=== PATIENT | female | born 1995 | race Caucasian/White ===

== ENCOUNTER 2016-10-24 10:31 | Emergency (ER) | payer MEDICAID ==
[~2016-10-24] VITALS: Ht 160 cm; Wt 86.0 kg
[2016-10-24 10:32] VITALS: BP 120/78; PULSE 91; RESP 16; TEMP 97.6; O2SAT 99
[2016-10-24] MEDS ORDERED: SODIUM CHLOR 0.9% 1000 ML INJ 1,000 ML IV SCH (11:25)
[2016-10-24] MEDS ORDERED: ONDANSETRON HCL 4 MG/2 ML VIAL IVP ONE (11:30)
[2016-10-24] MEDS ORDERED: KETOROLAC TROMETHAMINE 30 MG/ML (IVP) VIAL IVP ONE (11:30)
--- NOTE | 2016-10-24 11:31 | PD ---
HPI Chief Complaint: GI Complaint Time Seen by Provider: 11:17 Travel History International Travel<30 days: No Contact w/Intl Traveler<30days: No Traveled to known affect area: No History of Present Illness HPI 21-year-old female complains of headache, nausea vomiting diarrhea. Patient states that the symptoms started this morning. Patient states that headache is aching headache diffuse over the head. Patient denies any visual change. Patient denies any neck pain. Patient denies any chest pain or shortness of breath. Patient denies abdominal pain. Patient denies any dysuria or frequency. Patient denies any vaginal discharge or bleeding. Patient denies any back pain. Patient denies any fever chills. PFSH Past Medical History Asthma: Yes (SPORTS INDUCED ASTHMA WHEN YOUNGER) Depression: Yes Chest Pain: Yes Diminished Hearing: No Headaches: Yes Immunizations Current: Yes Migraines: Yes Seizures: Yes (head injury) Tetanus Vaccination: < 5 Years Influenza Vaccination: No ?: Not LMP: 1 WEEK AGO Past Surgical History Tonsillectomy: Yes (adnoids) Social History Alcohol Use: Yes (ONCE PER WEEK) Tobacco Use: Yes (occ) Substance Use: No Allergies-Medications (Allergen,Severity, Reaction): Coded Allergies: No Known Allergies (Unverified , 10/24/16) Reported Meds & Prescriptions Reported Meds & Active Scripts Active No Active Prescriptions or Reported Medications Review of Systems General / Constitutional: No: Fever Eyes: No: Visual changes HENT: Positive: Headaches Cardiovascular: No: Chest Pain or Discomfort Respiratory: No: Shortness of Breath Gastrointestinal: Positive: Nausea, Vomiting, Diarrhea, No: Abdominal Pain Genitourinary: No: Dysuria Musculoskeletal: No: Pain Skin: No Rash Neurologic: No: Weakness Psychiatric: No: Depression Endocrine: No: Polydipsia Hematologic/Lymphatic: No: Easy Bruising Physical Exam Narrative GENERAL: Well-nourished, well-developed patient. SKIN: Focused skin assessment warm/dry. HEAD: Normocephalic. EYES: No scleral icterus. No injection or drainage. NECK: Supple, trachea midline. No JVD or lymphadenopathy. CARDIOVASCULAR: Regular rate and rhythm without murmurs, gallops, or rubs. RESPIRATORY: Breath sounds equal bilaterally. No accessory muscle use. GASTROINTESTINAL: Abdomen soft, nondistended. Patient has mild diffuse tenderness over the abdomen. No rebound tenderness. No mass. MUSCULOSKELETAL: No cyanosis, or edema. BACK: Nontender without obvious deformity. No CVA tenderness. Data Data Last Documented VS Vital Signs Date Time Temp Pulse Resp B/P Pulse Ox O2 Delivery O2 Flow Rate FiO2 10/24/16 11:54 90 18 138/75 98 Room Air 10/24/16 10:32 97.6 Orders Complete Blood Count With Diff (10/24/16 11:25) Comprehensive Metabolic Panel (10/24/16 11:25) Lipase (10/24/16 11:25) Urinalysis - C+S If Indicated (10/24/16 11:25) Iv Access Insert/Monitor (10/24/16 11:25) Ecg Monitoring (10/24/16 11:25) Oximetry (10/24/16 11:25) Ondansetron Inj (Zofran Inj) (10/24/16 11:30) Sodium Chlor 0.9% 1000 Ml Inj (Ns 1000 M (10/24/16 11:25) Ketorolac Inj (Toradol Inj) (10/24/16 11:30) Ed Urine Pregnancytest Poc (10/24/16 11:25) Labs Laboratory Tests Test 10/24/16 10/24/16 11:20 11:40 Urine Collection Type CLEAN CATCH Urine Color YELLOW Urine Turbidity CLEAR Urine pH 6.0 Urine Specific [place] 1.026 Urine Protein TRACE mg/dL Urine Glucose (UA) NEG mg/dL Urine Ketones NEG mg/dL Urine Occult Blood LARGE Urine Nitrite NEG Urine Bilirubin NEG Urine Leukocyte Esterase NEG Urine RBC 0-3 /hpf Urine WBC 3-5 /hpf Urine Squamous Epithelial 0-5 /hpf Cells Urine Amorphous Sediment MOD Microscopic Urinalysis Comment CULT NOT INDICATED White Blood Count 13.2 TH/MM3 Red Blood Count 5.46 MIL/MM3 Hemoglobin 14.4 GM/DL Hematocrit 44.4 % Mean Corpuscular Volume 81.4 FL Mean Corpuscular Hemoglobin 26.4 PG Mean Corpuscular Hemoglobin 32.5 % Concent Red Cell Distribution Width 13.2 % Platelet Count 309 TH/MM3 Mean Platelet Volume 9.4 FL Neutrophils (%) (Auto) 87.8 % Lymphocytes (%) (Auto) 6.7 % Monocytes (%) (Auto) 4.0 % Eosinophils (%) (Auto) 1.2 % Basophils (%) (Auto) 0.3 % Neutrophils # (Auto) 11.6 TH/MM3 Lymphocytes # (Auto) 0.9 TH/MM3 Monocytes # (Auto) 0.5 TH/MM3 Eosinophils # (Auto) 0.2 TH/MM3 Basophils # (Auto) 0.0 TH/MM3 CBC Comment DIFF FINAL Differential Comment Sodium Level 139 MEQ/L Potassium Level 4.4 MEQ/L Chloride Level 107 MEQ/L Carbon Dioxide Level 25.4 MEQ/L Anion Gap 7 MEQ/L Blood Urea Nitrogen 16 MG/DL Creatinine 0.77 MG/DL Estimat Glomerular Filtration 94 ML/MIN Rate Random Glucose 107 MG/DL Calcium Level 9.5 MG/DL Total Bilirubin 0.5 MG/DL Aspartate Amino Transf 14 U/L (AST/SGOT) Alanine Aminotransferase 22 U/L (ALT/SGPT) Alkaline Phosphatase 80 U/L Total Protein 7.9 GM/DL Albumin 3.9 GM/DL Lipase 149 U/L [facility] Medical Decision Making Medical Screen Exam Complete: Yes Emergency Medical Condition: Yes Interpretation(s) 11:58 AM. CBC WBC 13.2. 87 neutrophil. UA is negative. Urine test negative. 12:17 PM. CMP within normal limits. Differential Diagnosis Differential diagnoses including gastroenteritis, viral syndrome, migraine headache, tension headache, cluster headache, electrolyte abnormality, dehydration. Narrative Course 21-year-old female complains of headache, nausea vomiting diarrhea. Normal saline solution 1 L IV bolus. Toradol 30 mg IV. Zofran 4 mg IV. Diagnosis Primary Impression: Gastroenteritis Additional Impression: Cephalgia Qualified Code: R51 - Acute nonintractable headache, unspecified headache type Patient Instructions: General Instructions Additional Instructions: Take medication as needed. Follow-up with personal physician. Return if persistent problem or worse. Med/Other Pt SpecificInfo: Prescription(s) given Scripts Diphenoxylate-Atropine (Lomotil)2.5-0.025 Mg Tab1 Tab PO Q6H PRN (DIARRHEA) #10 TAB Ref 0 Prov:Kevin Mireles MD 10/24/16 Ondansetron Odt (Zofran Odt)4 Mg Tab4 Mg SL Q6HR PRN (Nausea/Vomiting) #10 TAB Prov:Kevin Mireles MD 10/24/16 Disposition: 01 DISCHARGE HOME Condition: Stable Kevin Mireles MD Oct 24, 2016 11:31
[2016-10-24 11:48] LABS: AUTOMATED NEUTROPHIL # 11.6 TH/MM3 (1.8-7.7); BASOPHIL % 0.3 % (0.0-2.0); EOSINOPHIL # 0.2 TH/MM3 (0-0.4); EOSINOPHIL % 1.2 % (0.0-4.0); HEMATOCRIT 44.4 % (35.0-46.0); HEMO FLAGS DIFF FINAL; LYMPH % 6.7 % (9.0-44.0); LYMPHOCYTE # 0.9 TH/MM3 (1.0-4.8); MEAN CELL VOLUME 81.4 FL (80.0-100.0); MEAN CORPUSCULAR HEMOGLOBIN 26.4 PG (27.0-34.0); MEAN CORPUSCULAR HGB CONC 32.5 % (32.0-36.0); NEUT % 87.8 % (16.0-70.0); PLATELET COUNT 309 TH/MM3 (150-450); RED BLOOD COUNT 5.46 MIL/MM3 (4.00-5.30); RED CELL DISTRIBUTION WIDTH 13.2 % (11.6-17.2); WHITE BLOOD COUNT 13.2 TH/MM3 (4.0-11.0)
[2016-10-24 11:49] LABS: BLOOD, URINE LARGE (NEG); GLUCOSE,URINE NEG (NEG); KETONE, URINE NEG (NEG); NITRITE,URINE NEG (NEG)
[2016-10-24 11:50] LABS: METHOD OF COLLECTION CLEAN CATCH; URINE COLOR YELLOW (YELLW/STRAW)
[2016-10-24 11:53] LABS: RBC, URINE 0-3 /hpf (0-3); SQUAMOUS EPITHELIAL CELL URINE 0-5 /hpf (0-5)
[2016-10-24 11:54] VITALS: BP 138/75; PULSE 90; RESP 18; O2SAT 98
[2016-10-24 11:54] LABS: COMMENT (UR) CULT NOT INDICATED; CULTURE IF INDICATED CULT NOT INDICATED
[2016-10-24 11:56] LABS: CHLORIDE 107 MEQ/L (98-107); POTASSIUM 4.4 MEQ/L (3.5-5.1); SODIUM (NA) 139 MEQ/L (136-145)
[2016-10-24 12:00] LABS: ANION GAP 7 MEQ/L (5-15); BICARBONATE 25.4 MEQ/L (21.0-32.0); BLOOD UREA NITROGEN 16 MG/DL (7-18)
[2016-10-24 12:03] LABS: ALT (GPT) 22 U/L (10-53); AST (GOT) 14 U/L (15-37); GLOMERULAR FILTRATION RATE 94 ML/MIN (>89)
[2016-10-24 12:04] LABS: TOTAL BILIRUBIN ADULT 0.5 MG/DL (0.2-1.0)
[2016-10-24 12:06] LABS: ALKALINE PHOSPHATASE 80 U/L (45-117)
[2016-10-24] MEDS ORDERED: LOMO2.5T PO (12:22)
[2016-10-24] MEDS ORDERED: ZOFR4TAB3 SL (12:22)
[2016-10-24 13:02] VITALS: BP 117/53
== END 2016-10-24 13:05 | disposition home or self-care (01) ==
LOC: PHED 10:31
DX: K52.9 Noninfective gastroenteritis and colitis, unspecified (principal); R51 Headache; Z72.0 Tobacco use
CPT/HCPCS: 80053; 81001; 83690; 84703; 85025; 96361; 96374; 96375; 99284; J1885; J2405; J7030

== ENCOUNTER 2017-07-19 11:54 | Emergency (ER) | payer MEDICAID ==
[~2017-07-19] VITALS: Ht 160 cm; Wt 83.4 kg
[~2017-07-19 11:54] MED LIST: LOMO2.5T PO; ZOFR4TAB3 SL
[2017-07-19 11:57] VITALS: BP 139/88; PULSE 93; RESP 18; TEMP 98.5; O2SAT 97
[2017-07-19] MEDS ORDERED: SODIUM CHLOR 0.9% 1000 ML INJ 1,000 ML IV SCH (12:50)
--- NOTE | 2017-07-19 12:53 | PD ---
HPI Chief Complaint: Abdominal Pain Time Seen by Provider: 12:44 Travel History International Travel<30 days: No Contact w/Intl Traveler<30days: No Traveled to known affect area: No History of Present Illness HPI This 22-year-old female is complaining of pain in the right flank/right upper quadrant for the last 2 days. Says the pain is been fairly constant. It is associated with nausea. She does not recall having pain like this before. She has not vomited. She is not aware of fever or chills. He has not had any dysuria or frequency of urination. PFSH Past Medical History Asthma: Yes (SPORTS INDUCED ASTHMA WHEN YOUNGER) Depression: Yes Chest Pain: Yes Diminished Hearing: No Headaches: Yes Immunizations Current: Yes Migraines: Yes Seizures: Yes (head injury) ?: Not LMP: ONE WEEK AGO Past Surgical History Tonsillectomy: Yes (adnoids) Social History Alcohol Use: Yes (ONCE PER WEEK) Tobacco Use: Yes (occ) Substance Use: No Allergies-Medications (Allergen,Severity, Reaction): Coded Allergies: No Known Allergies (Unverified Adverse Reaction, Unknown, 07/19/17) Reported Meds & Prescriptions Reported Meds & Active Scripts Active Lomotil (Diphenoxylate-Atropine) 2.5-0.025 Mg Tab 1 Tab PO Q6H PRN Zofran Odt (Ondansetron Odt) 4 Mg Tab 4 Mg SL Q6HR PRN Review of Systems General / Constitutional: No: Fever, Chills Eyes: No: Diploplia, Blurred Vision HENT: No: Headaches, Vertigo Cardiovascular: No: Chest Pain or Discomfort, Palpitations Respiratory: No: Cough, Shortness of Breath Gastrointestinal: Positive: Nausea, Abdominal Pain Genitourinary: Positive: Flank Pain, No: Urgency, Frequency Musculoskeletal: No: Myalgias Skin: No Rash, No Itching Neurologic: No: Weakness, Dizziness Endocrine: No: Heat Intolerance Hematologic/Lymphatic: No: Easy Bruising Physical Exam Narrative GENERAL: Well-developed female SKIN: Focused skin assessment warm/dry. HEAD: Atraumatic. Normocephalic. EYES: Pupils equal and round. No scleral icterus. No injection or drainage. ENT: No nasal bleeding or discharge. Mucous membranes pink and moist. NECK: Trachea midline. No JVD. CARDIOVASCULAR: Regular rate and rhythm. No murmur appreciated. RESPIRATORY: No accessory muscle use. Clear to auscultation. Breath sounds equal bilaterally. GASTROINTESTINAL: Abdomen soft, non-tender, nondistended. Hepatic and splenic margins not palpable. There is some right mid abdominal and right flank tenderness MUSCULOSKELETAL: No obvious deformities. No clubbing. No cyanosis. No edema. NEUROLOGICAL: Awake and alert. No obvious cranial nerve deficits. Motor grossly within normal limits. Normal speech. PSYCHIATRIC: Appropriate mood and affect; insight and judgment normal. Data Data Last Documented VS Vital Signs Date Time Temp Pulse Resp B/P (MAP) Pulse Ox O2 Delivery O2 Flow Rate FiO2 07/19/17 14:44 70 16 127/71 (89) 96 Room Air 07/19/17 11:57 98.5 Orders Orders Complete Blood Count With Diff (07/19/17 12:50) Comprehensive Metabolic Panel (07/19/17 12:50) Urinalysis - C+S If Indicated (07/19/17 12:50) Ct Abd/Pel W Iv Contrast(Rout) (07/19/17 12:50) Iv Access Insert/Monitor (07/19/17 12:50) Ecg Monitoring (07/19/17 12:50) Oximetry (07/19/17 12:50) Ondansetron Inj (Zofran Inj) (07/19/17 13:00) Sodium Chlor 0.9% 1000 Ml Inj (Ns 1000 M (07/19/17 12:50) Sodium Chloride 0.9% Flush (Ns Flush) (07/19/17 13:00) Ed Urine Pregnancytest Poc (07/19/17 12:50) Iohexol 350 Inj (Omnipaque 350 Inj) (07/19/17 14:08) Labs Laboratory Tests Test 07/19/17 13:20 07/19/17 13:25 Urine Collection Type VOIDED Urine Color YELLOW Urine Turbidity CLEAR Urine pH 8.0 Urine Specific [place] 1.015 Urine Protein NEG mg/dL Urine Glucose (UA) NEG mg/dL Urine Ketones NEG mg/dL Urine Occult Blood SMALL Urine Nitrite NEG Urine Bilirubin NEG Urine Urobilinogen 0.2 MG/DL Urine Leukocyte Esterase NEG Urine RBC 0-2 /hpf Urine WBC /hpf Urine Squamous Epithelial Cells 0-2 /hpf Microscopic Urinalysis Comment CULT NOT INDICATED White Blood Count 10.4 TH/MM3 Red Blood Count 4.65 MIL/MM3 Hemoglobin 13.4 GM/DL Hematocrit 39.6 % Mean Corpuscular Volume 85.1 FL Mean Corpuscular Hemoglobin 28.8 PG Mean Corpuscular Hemoglobin Concent 33.8 % Red Cell Distribution Width 12.5 % Platelet Count 252 TH/MM3 Mean Platelet Volume 9.8 FL Neutrophils (%) (Auto) 60.9 % Lymphocytes (%) (Auto) 24.9 % Monocytes (%) (Auto) 7.4 % Eosinophils (%) (Auto) 2.6 % Basophils (%) (Auto) 4.2 % Neutrophils # (Auto) 6.3 TH/MM3 Lymphocytes # (Auto) 2.6 TH/MM3 Monocytes # (Auto) 0.8 TH/MM3 Eosinophils # (Auto) 0.3 TH/MM3 Basophils # (Auto) 0.4 TH/MM3 CBC Comment DIFF FINAL Differential Comment Blood Urea Nitrogen 12 MG/DL Creatinine 0.74 MG/DL Random Glucose 85 MG/DL Total Protein 7.4 GM/DL Albumin 3.7 GM/DL Calcium Level 9.2 MG/DL Alkaline Phosphatase 67 U/L Aspartate Amino Transf (AST/SGOT) 32 U/L Alanine Aminotransferase (ALT/SGPT) 21 U/L Total Bilirubin 0.4 MG/DL Sodium Level 141 MEQ/L Potassium Level 4.8 MEQ/L Chloride Level 110 MEQ/L Carbon Dioxide Level 26.1 MEQ/L Anion Gap 5 MEQ/L Estimat Glomerular Filtration Rate 97 ML/MIN [facility] Medical Decision Making Medical Screen Exam Complete: Yes Emergency Medical Condition: Yes Medical Record Reviewed: Yes Differential Diagnosis Differential includes pyelonephritis, renal colic, appendicitis, ovarian cyst Narrative Course Urinalysis is negative for blood CT of the abdomen and pelvis was obtained and there was a 3 mm stone in the distal right ureter causing right hydronephrosis and hydroureter. Patient is here with her 2-year-old child so I am reluctant to give any narcotics but I will order some Toradol Diagnosis Primary Impression: Right ureteral stone Scripts Ondansetron Odt (Zofran Odt) 4 Mg Tab 4 MG SL Q6HR Y for Nausea/Vomiting, #10 TAB 0 Refills Prov: Denny Clark MD 07/19/17 Hydrocodone-Acetaminophen ([place]) 7.5-325 mg Tab 1 TAB PO Q4H Y for PAIN, #12 TAB 0 Refills Prov: Denny Clark MD 07/19/17 Disposition: 01 DISCHARGE HOME Condition: Stable Denny Clark MD Jul 19, 2017 12:53
[2017-07-19] MEDS ORDERED: SODIUM CHLORIDE 0.9% FLUSH 10 ML FLUSH IV FLUSH PRN (13:00)
[2017-07-19] MEDS ORDERED: ONDANSETRON HCL 4 MG/2 ML VIAL IVP ONE (13:00)
[2017-07-19 13:31] VITALS: RESP 16; O2SAT 99
[2017-07-19 13:31] LABS: AUTOMATED NEUTROPHIL # 6.3 TH/MM3 (1.8-7.7); BASOPHIL # 0.4 TH/MM3 (0-0.2); BASOPHIL % 4.2 % (0.0-2.0); EOSINOPHIL # 0.3 TH/MM3 (0-0.4); EOSINOPHIL % 2.6 % (0.0-4.0); HEMATOCRIT 39.6 % (35.0-46.0); HEMOGLOBIN 13.4 GM/DL (11.6-15.3); LYMPH % 24.9 % (9.0-44.0); LYMPHOCYTE # 2.6 TH/MM3 (1.0-4.8); MEAN CELL VOLUME 85.1 FL (80.0-100.0); MEAN CORPUSCULAR HEMOGLOBIN 28.8 PG (27.0-34.0); MEAN CORPUSCULAR HGB CONC 33.8 % (32.0-36.0); MEAN PLATELET VOLUME 9.8 FL (7.0-11.0); MONO % 7.4 % (0.0-8.0); MONOCYTE # 0.8 TH/MM3 (0-0.9); NEUT % 60.9 % (16.0-70.0); PLATELET COUNT 252 TH/MM3 (150-450); RED BLOOD COUNT 4.65 MIL/MM3 (4.00-5.30); RED CELL DISTRIBUTION WIDTH 12.5 % (11.6-17.2); WHITE BLOOD COUNT 10.4 TH/MM3 (4.0-11.0)
[2017-07-19 13:39] VITALS: BP 118/74; PULSE 72; RESP 16; O2SAT 97
[2017-07-19 13:39] LABS: BILIRUBIN, URINE NEG (NEG); BLOOD, URINE SMALL (NEG); GLUCOSE,URINE NEG (NEG); KETONE, URINE NEG (NEG); NITRITE,URINE NEG (NEG); URINE COLOR YELLOW (YELLW/STRAW); URINE LEUKOCYTE ESTERASE NEG (NEG)
[2017-07-19 13:40] LABS: CHLORIDE 110 MEQ/L (98-107); SODIUM (NA) 141 MEQ/L (136-145)
[2017-07-19 13:43] LABS: ALBUMIN 3.7 GM/DL (3.4-5.0); BICARBONATE 26.1 MEQ/L (21.0-32.0); CALCIUM 9.2 MG/DL (8.5-10.1); GLUCOSE,RANDOM 85 MG/DL (74-106)
[2017-07-19 13:44] LABS: BLOOD UREA NITROGEN 12 MG/DL (7-18)
[2017-07-19 13:46] LABS: ALT (GPT) 21 U/L (10-53); AST (GOT) 32 U/L (15-37)
[2017-07-19 13:47] LABS: CREATININE 0.74 MG/DL (0.50-1.00); GLOMERULAR FILTRATION RATE 97 ML/MIN (>89)
[2017-07-19 13:48] LABS: TOTAL BILIRUBIN ADULT 0.4 MG/DL (0.2-1.0); TOTAL PROTEIN 7.4 GM/DL (6.4-8.2)
[2017-07-19 13:49] LABS: ALKALINE PHOSPHATASE 67 U/L (45-117)
[2017-07-19] MEDS ORDERED: IOHEXOL 350 MG/ML 10 ML VIAL (for RAD DIAG) IVCONTRAST ONE (14:08)
[2017-07-19 14:09] LABS: RBC, URINE 0-2 /hpf (0-3); SQUAMOUS EPITHELIAL CELL URINE 0-2 /hpf (0-5)
[2017-07-19 14:44] VITALS: BP 127/71; PULSE 70; RESP 16; O2SAT 96
--- NOTE | 2017-07-19 14:45 | RADRPT ---
EXAM DATE/TIME: 07/19/2017 13:53 [place] COMPARISON: No previous studies available for comparison. INDICATIONS : Right lower quadrant pain. IV CONTRAST: 95 cc Omnipaque 350 (iohexol) IV ORAL CONTRAST: No oral contrast ingested. RADIATION DOSE: 16.52 CTDIvol (mGy) MEDICAL HISTORY : Seizures. SURGICAL HISTORY : None. ENCOUNTER: Initial ACUITY: 3 days PAIN SCALE: 9/10 LOCATION: Right lower quadrant TECHNIQUE: Volumetric scanning of the abdomen and pelvis was performed. Using automated exposure control and ad justment of the mA and/or kV according to patient size, radiation dose was kept as low as reasonably achievable to obtain optimal diagnostic quality images. DICOM format image data is available electro nically for review and comparison. FINDINGS: LOWER LUNGS: The visualized lower lungs are clear. LIVER: Homogeneous density without lesion. There is no dilation of the biliary tree. No calcified gallston es. SPLEEN: Normal size without lesion. PANCREAS: Within normal limits. KIDNEYS: Normal in size and shape. There is mild right hydronephrosis and hydroureter caused by a 3 mm stone i n the distal right ureter. In the left mid collecting system there is a 2 mm nonobstructing stone and another 4 mm nonobstructing stone in the lower pole ADRENAL GLANDS: Within normal limits. VASCULAR: There is no aortic aneurysm. BOWEL/MESENTERY: The stomach, small bowel, and colon demonstrate no acute abnormality. There is no free intraperitone al air or fluid. Appendix and terminal ileum are normal. ABDOMINAL WALL: Within normal limits. RETROPERITONEUM: There is no lymphadenopathy. BLADDER: No wall thickening or mass. REPRODUCTIVE: Within normal limits. There is a right ovarian corpus luteal cyst. INGUINAL: There is no lymphadenopathy or hernia. MUSCULOSKELETAL: No acute abnormality. CONCLUSION: 1. The patient's right lower quadrant pain is caused by a 3 mm stone in the distal right ureter which is resulting in right hydronephrosis and hydroureter. 2. The appendix and terminal ileum are normal. 3. There are nonobstructing stones in the left kidney measuring 2 mm in the midportion and 4 mm at th e lower pole. Matty Barksdale MD on July 19, 2017 at 14:35 Board Certified Radiologist. This report was verified electronically.
[2017-07-19] MEDS ORDERED: KETOROLAC TROMETHAMINE 30 MG/ML (IVP) VIAL IV PUSH ONE (15:00)
[2017-07-19] MEDS ORDERED: ZOFR4TAB3 SL (15:02)
[2017-07-19] MEDS ORDERED: HYDR-3288 PO (15:02)
== END 2017-07-19 15:20 | disposition home or self-care (01) ==
LOC: PHED 11:54
DX: N13.2 Hydronephrosis with renal and ureteral calculous obstruction (principal); F32.9 Major depressive disorder, single episode, unspecified; Z72.0 Tobacco use
CPT/HCPCS: 74177; 80053; 81001; 84703; 85025; 96361; 96374; 96375; 99285; J1885; J2405; J7030; Q9967

== ENCOUNTER 2017-08-31 20:30 | Emergency (ER) | payer SELFPAY ==
[~2017-08-31] VITALS: Ht 160 cm; Wt 80.1 kg
[~2017-08-31 20:30] MED LIST changes: +HYDR-3288 PO
[2017-08-31 20:34] VITALS: BP 164/89; PULSE 87; RESP 16; TEMP 98.3; O2SAT 100
[2017-08-31] MEDS ORDERED: SODIUM CHLOR 0.9% 1000 ML INJ 1,000 ML IV ONE (20:56)
[2017-08-31] MEDS ORDERED: SODIUM CHLORIDE 0.9% FLUSH 10 ML FLUSH IVF PRN (21:00)
[2017-08-31 21:24] LABS: AUTOMATED NEUTROPHIL # 6.7 TH/MM3 (1.8-7.7); BASOPHIL # 0.2 TH/MM3 (0-0.2); BASOPHIL % 1.5 % (0.0-2.0); EOSINOPHIL # 0.3 TH/MM3 (0-0.4); EOSINOPHIL % 2.7 % (0.0-4.0); HEMOGLOBIN 14.5 GM/DL (11.6-15.3); LYMPH % 25.6 % (9.0-44.0); LYMPHOCYTE # 2.7 TH/MM3 (1.0-4.8); MEAN CELL VOLUME 86.7 FL (80.0-100.0); MEAN CORPUSCULAR HEMOGLOBIN 28.6 PG (27.0-34.0); MEAN PLATELET VOLUME 9.5 FL (7.0-11.0); MONOCYTE # 0.6 TH/MM3 (0-0.9); NEUT % 64.2 % (16.0-70.0); PLATELET COUNT 293 TH/MM3 (150-450); RED BLOOD COUNT 5.08 MIL/MM3 (4.00-5.30); RED CELL DISTRIBUTION WIDTH 12.5 % (11.6-17.2); WHITE BLOOD COUNT 10.5 TH/MM3 (4.0-11.0)
[2017-08-31 21:51] LABS: CHLORIDE 106 MEQ/L (98-107); SODIUM (NA) 139 MEQ/L (136-145)
[2017-08-31 21:54] LABS: ALBUMIN 3.9 GM/DL (3.4-5.0); BICARBONATE 25.7 MEQ/L (21.0-32.0); GLUCOSE,RANDOM 78 MG/DL (74-106)
[2017-08-31 21:55] LABS: BLOOD UREA NITROGEN 13 MG/DL (7-18)
[2017-08-31 21:56] LABS: BILIRUBIN, URINE NEG (NEG); BLOOD, URINE TRACE (NEG); GLUCOSE,URINE NEG (NEG); KETONE, URINE NEG (NEG); NITRITE,URINE NEG (NEG); URINE COLOR YELLOW (YELLW/STRAW); URINE LEUKOCYTE ESTERASE NEG (NEG)
[2017-08-31 21:57] LABS: ALT (GPT) 25 U/L (10-53)
[2017-08-31 21:58] LABS: AST (GOT) 17 U/L (15-37); CREATININE 0.65 MG/DL (0.50-1.00); GLOMERULAR FILTRATION RATE 113 ML/MIN (>89)
[2017-08-31 21:59] LABS: TOTAL BILIRUBIN ADULT 0.2 MG/DL (0.2-1.0); TOTAL PROTEIN 7.8 GM/DL (6.4-8.2)
[2017-08-31 22:00] LABS: ALKALINE PHOSPHATASE 63 U/L (45-117)
[2017-08-31 22:02] LABS: BACTERIA, URINE RARE /hpf; CALCIUM OXALATE CRYSTALS,URINE FEW /hpf; RBC, URINE 0-3 /hpf (0-3); SQUAMOUS EPITHELIAL CELL URINE 0-5 /hpf (0-5); WBC, URINE 0-2 /hpf (0-5)
--- NOTE | 2017-09-01 | RADRPT ---
EXAM DATE: 08/31/2017 11:49 PM EDT AGE/SEX: 22 years / Female INDICATIONS: Vaginal bleeding. CLINICAL DATA: This is the patient's initial encounter. Patient reports that signs and symptoms have been present for 1 day and indicates a pain score of 5/10. MEDICAL/SURGICAL HISTORY: . . COMPARISON: No prior exams available for comparison. MEASUREMENTS: Uterus:__8.3 x 4.2 x 4.3 cm Endometrial Stripe:__3 mm Right Ovary:__ 4.8 x 2.7 x 2.7 cm Left Ovary:__ 3.1 x 1.5 x 2.0 cm FINDINGS: Uterus: The myometrium has homogeneous echotexture without mass. Right Ovary: Multiple small simple follicular cysts. Left Ovary: Multiple small simple follicular cysts. Other: No free fluid. CONCLUSION: Pelvic ultrasound within normal limits. Electronically signed by: Yung Caro MD 08/31/2017 11:58 PM EDT
[2017-09-01] MEDS ORDERED: INDO25CA PO (00:26)
--- NOTE | 2017-09-01 00:27 | PD ---
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 Patient states that she had a positive test 2 weeks ago. Her LMP is July 21, 2017. Patient states she passed 2 large blood clots earlier today while at work after which she continued to bleed heavily at first and it subsided to spotting. Patient also felt dizzy at first however she feels well now. Patient denies any abdominal trauma, nausea, vomiting, fever, chills, vaginal discharge or shortness of breath. PFSH Past Medical History Medical History: Denies Significant Hx Asthma: Yes (SPORTS INDUCED ASTHMA WHEN YOUNGER) Depression: Yes Chest Pain: Yes Diminished Hearing: No Headaches: Yes Kidney Stones: Yes Immunizations Current: Yes Migraines: Yes Seizures: Yes (head injury) ?: LMP: 07/12/17 Para: 1 Miscarriage: 1 Past Surgical History Oral Surgery: Yes Tonsillectomy: Yes Social History Alcohol Use: Yes (occasional) Tobacco Use: No Substance Use: Yes (occasional marijuana) Allergies-Medications (Allergen,Severity, Reaction): Coded Allergies: No Known Allergies (Unverified Allergy, Unknown, 08/31/17) Reported Meds & Prescriptions Reported Meds & Active Scripts Active Indomethacin 25 Mg Cap 25 Mg PO TID Take with food, milk, or antacids to decrease stomach adverse effects. Review of Systems Except as stated in HPI: all other systems reviewed are Neg General / Constitutional: No: Fever, Chills Eyes: No: Blurred Vision, Redness, Pain HENT: No: Rhinorrhea, Congestion, Neck Stiffness, Neck Pain, Earache Cardiovascular: No: Chest Pain or Discomfort, Palpitations, Dyspnea on exertion Respiratory: No: Cough, Shortness of Breath, Wheezing Gastrointestinal: No: Nausea, Vomiting, Diarrhea, Abdominal Pain, Hematochezia , Constipation Genitourinary: Positive: Vaginal Bleeding, No: Dysuria Musculoskeletal: No: Myalgias Skin: No Rash, No Hives Neurologic: No: Weakness, Dizziness, Syncope, Headache, Slurred Speech, Seizures Psychiatric: No: Suicidal Ideations Physical Exam Narrative Vital Signs Date Time Temp Pulse Resp B/P (MAP) Pulse Ox O2 Delivery O2 Flow Rate FiO2 08/31/17 20:34 98.3 87 16 164/89 (114) 100 GENERAL: Patient is alert and oriented -3 SKIN: Focused skin assessment warm/dry. HEAD: Atraumatic. Normocephalic. EYES: Pupils equal and round. No scleral icterus. No injection or drainage. ENT: No nasal bleeding or discharge. Mucous membranes pink and moist. NECK: Trachea midline. No JVD. CARDIOVASCULAR: Regular rate and rhythm. No murmur appreciated. RESPIRATORY: No accessory muscle use. Clear to auscultation. Breath sounds equal bilaterally. GASTROINTESTINAL: Abdomen soft, non-tender, nondistended. Hepatic and splenic margins not palpable. MUSCULOSKELETAL: No obvious deformities. No clubbing. No cyanosis. No edema. NEUROLOGICAL: Awake and alert. No obvious cranial nerve deficits. Motor grossly within normal limits. Normal speech. PSYCHIATRIC: Appropriate mood and affect; insight and judgment normal. GENITOURINARY: Normal external genitalia without lesions or erythema. Vaginal vault with pooling of blood. Cervical os was closed without drainage. No cervical motion tenderness. Uterus nontender and nonenlarged. Bilateral adnexa nontender without masses. Data Data Last Documented VS Vital Signs Date Time Temp Pulse Resp B/P (MAP) Pulse Ox O2 Delivery O2 Flow Rate FiO2 09/01/17 00:39 82 16 145/85 (105) 100 08/31/17 20:34 98.3 Orders Orders Beta Hcg (Quant/Titer) (08/31/17 20:56) Complete Blood Count With Diff (08/31/17 20:56) Comprehensive Metabolic Panel (08/31/17 20:56) Type And Screen (08/31/17 20:56) Urinalysis - C+S If Indicated (08/31/17 20:56) Iv Access Insert/Monitor (08/31/17 20:56) Sodium Chloride 0.9% Flush (Ns Flush) (08/31/17 21:00) Sodium Chlor 0.9% 1000 Ml Inj (Ns 1000 M (08/31/17 20:56) Ed Urine Pregnancytest Poc (08/31/17 21:53) Gc And Chlamydia Pcr (08/31/17 23:22) Wet Prep Profile (08/31/17 23:22) Us Pelvis Comp W Transvaginal (08/31/17 ) Ed Discharge Order (09/01/17 00:27) Labs Laboratory Tests Test 08/31/17 21:15 08/31/17 21:30 08/31/17 23:40 White Blood Count 10.5 TH/MM3 Red Blood Count 5.08 MIL/MM3 Hemoglobin 14.5 GM/DL Hematocrit 44.0 % Mean Corpuscular Volume 86.7 FL Mean Corpuscular Hemoglobin 28.6 PG Mean Corpuscular Hemoglobin Concent 33.0 % Red Cell Distribution Width 12.5 % Platelet Count 293 TH/MM3 Mean Platelet Volume 9.5 FL Neutrophils (%) (Auto) 64.2 % Lymphocytes (%) (Auto) 25.6 % Monocytes (%) (Auto) 6.0 % Eosinophils (%) (Auto) 2.7 % Basophils (%) (Auto) 1.5 % Neutrophils # (Auto) 6.7 TH/MM3 Lymphocytes # (Auto) 2.7 TH/MM3 Monocytes # (Auto) 0.6 TH/MM3 Eosinophils # (Auto) 0.3 TH/MM3 Basophils # (Auto) 0.2 TH/MM3 CBC Comment DIFF FINAL Differential Comment Blood Urea Nitrogen 13 MG/DL Creatinine 0.65 MG/DL Random Glucose 78 MG/DL Total Protein 7.8 GM/DL Albumin 3.9 GM/DL Calcium Level 9.0 MG/DL Alkaline Phosphatase 63 U/L Aspartate Amino Transf (AST/SGOT) 17 U/L Alanine Aminotransferase (ALT/SGPT) 25 U/L Total Bilirubin 0.2 MG/DL Sodium Level 139 MEQ/L Potassium Level 4.0 MEQ/L Chloride Level 106 MEQ/L Carbon Dioxide Level 25.7 MEQ/L Anion Gap 7 MEQ/L Estimat Glomerular Filtration Rate 113 ML/MIN Human Chorionic Gonadotropin, Quant LESS THAN 1 MIU/ML Urine Color YELLOW Urine Turbidity CLEAR Urine pH 6.0 Urine Specific [place] 1.025 Urine Protein NEG mg/dL Urine Glucose (UA) NEG mg/dL Urine Ketones NEG mg/dL Urine Occult Blood TRACE Urine Nitrite NEG Urine Bilirubin NEG Urine Urobilinogen 0.2 MG/DL Urine Leukocyte Esterase NEG Urine RBC 0-3 /hpf Urine WBC 0-2 /hpf Urine Squamous Epithelial Cells 0-5 /hpf Urine Calcium Oxalate Crystals FEW /hpf Urine Bacteria RARE /hpf Microscopic Urinalysis Comment CULT NOT INDICATED Clue Cells (Wet Prep) NONE SEEN Vaginal Trichomonas (Wet Prep) NONE SEEN Vaginal Yeast (Wet Prep) NONE SEEN Chlamydia trachomatis DNA (PCR) NOT DETECTED Neisseria gonorrhoeae DNA (PCR) NOT DETECTED MDM Medical Decision Making Medical Screen Exam Complete: Yes Emergency Medical Condition: Yes Medical Record Reviewed: Yes Differential Diagnosis , ectopic , ovarian cyst, dysmenorrhea, delayed menstrual cycle Narrative Course Patient improved during the ER course with IV fluids. Findings were discussed with the patient. Diagnosis Primary Impression: Vaginal bleeding Additional Impression: Pelvic pain Referrals: Karen Garriosn MD 3 days Patient Instructions: Dysfunctional Uterine Bleeding (DC), Dysmenorrhea (ED), General Instructions Scripts Indomethacin (Indomethacin) 25 Mg Cap 25 MG PO TID, #12 CAP 0 Refills Take with food, milk, or antacids to decrease stomach adverse effects. Prov: Mihir Whitmore MD 09/01/17 Disposition: 01 DISCHARGE HOME Condition: Stable Mihir Whitmore MD Sep 01, 2017 00:27
[2017-09-01 00:39] VITALS: BP 145/85
== END 2017-09-01 00:41 | disposition home or self-care (01) ==
LOC: PHED 20:30
DX: N93.9 Abnormal uterine and vaginal bleeding, unspecified (principal); R10.2 Pelvic and perineal pain; R42 Dizziness and giddiness; F32.9 Major depressive disorder, single episode, unspecified; Z87.442 Personal history of urinary calculi
CPT/HCPCS: 76830; 76856; 80053; 81001; 84702; 84703; 85025; 86850; 86900; 86901; 87210; 87491; 87591; 96360; 96361; 99284; J7030